=== PATIENT | female | born 1990 | race Caucasian/White ===

== ENCOUNTER 2023-08-25 10:31 | Emergency (ER) | payer MEDICAID ==
[~2023-08-25] VITALS: Ht 165.1 cm; Wt 62.1 kg
[2023-08-25 10:39] VITALS: BP 106/72; TEMP 98.2
[2023-08-25] MEDS ORDERED: ERYT3.5O9 EACHEYE (10:48)
[2023-08-25 10:59] VITALS: O2SAT 96
== END 2023-08-25 11:00 | disposition home or self-care (01) ==
LOC: ER 10:38
DX: H57.89 Other specified disorders of eye and adnexa (principal)

== ENCOUNTER 2023-12-28 13:23 | Emergency (ER) | payer BC, MEDICAID ==
[~2023-12-28] VITALS: Ht 165.1 cm; Wt 59.0 kg
[~2023-12-28 13:23] MED LIST: ERYT3.5O9 EACHEYE
[2023-12-28] MEDS: HYDROCODONE/APAP 5/325MG TABLET PO ONE (14:40)
[2023-12-28] MEDS ORDERED: LIDOCAINE 5% (PATCH) 1 EA PATCH TP ONE (14:43)
[2023-12-28] MEDS ORDERED: HYDROCODONE/APAP 5/325MG TABLET ONE (14:44)
[2023-12-28] MEDS: LIDOCAINE 5% (PATCH) 1 EA PATCH TP STA (14:48)
[2023-12-28] MEDS ORDERED: IBUP-1955 PO (15:55)
[2023-12-28] MEDS ORDERED: LIDO30AD10 TP (15:55)
[2023-12-28] MEDS ORDERED: CYCL5TAB PO (15:55)
[2023-12-28 16:29] VITALS: BP 123/64; TEMP 98.2; O2SAT 99
== END 2023-12-28 16:30 | disposition home or self-care (01) ==
LOC: ER 13:26
DX: S83.8X1A Sprain of other specified parts of right knee, initial encounter (principal); S76.011A Strain of muscle, fascia and tendon of right hip, initial encounter; Z79.899 Other long term (current) drug therapy; Z60.2 Problems related to living alone; V49.3XXA Car occupant (driver) (passenger) injured in unspecified nontraffic accident, initial encounter; Y93.89 Activity, other specified; Y92.89 Other specified places as the place of occurrence of the external cause; Y99.8 Other external cause status
CPT/HCPCS: 73502; 73564-TC